=== PATIENT | male | born 1995 | race Two or more races ===

== ENCOUNTER 2018-09-02 07:23 | Emergency (ER) | payer SELFPAY ==
[~2018-09-02] VITALS: Ht 172.7 cm; Wt 75.3 kg
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
--- NOTE | 2018-09-02 07:43 | NUR ---
urine collected and sent to lab
[2018-09-02 10:52] VITALS: BP 125/81
--- NOTE | 2018-09-02 10:53 | NUR ---
Patient discharged to home in stable condition. Written and verbal after care instructions given. Patient verbalizes understanding of instruction.
== END 2018-09-02 10:52 | disposition home or self-care (01) ==
LOC: ER 07:28
DX: G93.40 Encephalopathy, unspecified (principal); F10.129 Alcohol abuse with intoxication, unspecified; Y90.9 Presence of alcohol in blood, level not specified